=== PATIENT | male | born 1975 | race Caucasian/White ===

== ENCOUNTER 2021-08-28 08:27 | Emergency (ER) | payer OTHER ==
[~2021-08-28] VITALS: Ht 193 cm; Wt 154.2 kg
[2021-08-28 09:09] LABS: BASOPHIL 0.8 % (0-2); EOSINOPHIL 1.7 % (0-5); HCT 50.5 % (42.0-52.0); HGB 17.4 g/dl (13.2-18.0); LYMPHOCYTE 14.8 % (15-48); MCH 31.5 pg (25.0-31.0); MCHC 34.5 g/dL (32.0-36.0); MCV 91.3 fL (78.0-100.0); MONOCYTE 7.8 % (0-12); MPV 10.8 fL (6.0-9.5); NEUTROPHIL 74.1 % (41-80); NRBC 0; PLT 189 K/uL (150-400); RBC 5.53 M/uL (4.70-6.00); RDW 13.7 % (11.5-14.0); WBC 21.6 K/uL (4.0-10.5)
[2021-08-28 09:25] LABS: INR 1.07 (0.9-1.2); PROTHROMBIN TIME 13.3 SECONDS (11.8-13.4); PTT 24.6 SECONDS (24.4-34.7)
[2021-08-28 09:40] LABS: D-DIMER 8.98 ug/mLFEU (0.00-0.41)
[2021-08-28 09:43] LABS: ALBUMIN 3.5 g/dL (3.4-5.0); BILIRUBIN - TOTAL 0.9 mg/dL (0.2-1.0); BUN/CREAT RATIO (CALC) 16.1 RATIO; CREATININE 1.24 mg/dL (0.67-1.17); GLOBULIN (CALCULATION) 5.4 g/dL; POTASSIUM 4.5 mmol/L (3.5-5.1); TOTAL PROTEIN 8.9 g/dL (6.4-8.2)
[2021-08-28 11:07] LABS: INFLUENZA A NAA NEGATIVE (NEGATIVE)
[2021-08-28 11:14] LABS: CORONAVIRUS 2019 SARS-COV-2 POSITIVE (NEGATIVE)
== END 2021-08-28 11:52 | disposition other institution (70) ==
LOC: FER 08:27
PROVIDERS: Emergency Medicine
DX: A41.9 Sepsis, unspecified organism (principal); R73.9 Hyperglycemia, unspecified; U07.1 COVID-19; I26.99 Other pulmonary embolism without acute cor pulmonale; I80.11 Phlebitis and thrombophlebitis of right femoral vein; I80.221 Phlebitis and thrombophlebitis of right popliteal vein; I80.241 Phlebitis and thrombophlebitis of right peroneal vein; I80.231 Phlebitis and thrombophlebitis of right tibial vein; E66.9 Obesity, unspecified; Z88.0 Allergy status to penicillin
CPT/HCPCS: 36415; 71045; 71275; 80053; 83605; 83880; 84145; 84484; 85025; 85379; 85610; 85730; 87040; 93005; 93971; 94760; J0692; J1170; J1644; J7030; Q9967; U0002